=== PATIENT | male | born 1985 | race Caucasian/White ===

== ENCOUNTER 2020-10-07 18:52 | Emergency (ER) | payer BC, SELFPAY ==
[2020-10-07 18:52] VITALS: BP 160/95; PULSE 93; RESP 16; TEMP 36.8; O2SAT 99; BMI 31.1
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
[2020-10-07] MEDS: Diphth,Pertuss(Acell),Tet Vac 0.5 ML Vial IM (19:45)
[2020-10-07] MEDS: Ketorolac 60 MG/2 ML Vial IM (19:46)
[2020-10-07 19:53] VITALS: BP 156/70; PULSE 80; RESP 18; O2SAT 96
== END 2020-10-07 20:02 | disposition home or self-care (01) ==
PROVIDERS: Emergency Provider Emergency Medicine
DX: T30.0 Burn of unspecified body region, unspecified degree (principal); W40.8XXA Explosion of other specified explosive materials, initial encounter; Y93.9 Activity, unspecified; Y92.096 Garden or yard of other non-institutional residence as the place of occurrence of the external cause; Z23 Encounter for immunization; Z88.5 Allergy status to narcotic agent; Z88.8 Allergy status to other drugs, medicaments and biological substances
CPT/HCPCS: 90471; 96372; 99282